=== PATIENT | male | born 1975 | race Caucasian/White ===

== ENCOUNTER 2020-10-12 16:00 | Emergency (ER) | payer OTHER ==
[~2020-10-12] VITALS: Ht 188 cm; Wt 96.6 kg
[~2020-10-12 16:00] MED LIST: CLIN-97 PO; NO HOME MEDS
[2020-10-12 16:12] VITALS: BP 138/90
[2020-10-12] MEDS ORDERED: LIDOcaine 1% W/epiNEPHrine 1:200,000 10ml vial IJ ONE (19:30)
[2020-10-12] MEDS ORDERED: CEPH250T PO (20:23)
== END 2020-10-12 20:34 | disposition home or self-care (01) ==
LOC: ER 16:01
DX: S61.011A Laceration without foreign body of right thumb without damage to nail, initial encounter (principal); F12.90 Cannabis use, unspecified, uncomplicated; F15.90 Other stimulant use, unspecified, uncomplicated; F19.90 Other psychoactive substance use, unspecified, uncomplicated; Z72.89 Other problems related to lifestyle; Z79.2 Long term (current) use of antibiotics; W26.0XXA Contact with knife, initial encounter; Y93.89 Activity, other specified; Y92.89 Other specified places as the place of occurrence of the external cause; Y99.8 Other external cause status
CPT/HCPCS: 12002; 99283